=== PATIENT | male | born 1935 | race African-American/Black ===

== ENCOUNTER 2019-09-16 15:53 | Emergency (ER) | payer MEDICARE ==
[2019-09-16 16:50] LABS: ABSOLUTE EOSINOPHILS # (AUTO) 0.1 10^3/uL (0.0-0.6); ABSOLUTE LYMPHOCYTES (AUTO) 1.4 10^3/uL (0.5-4.7); ABSOLUTE MONOCYTES (AUTO) 0.6 10^3/uL (0.1-1.4); ABSOLUTE NEUT (AUTO) 5.2 10^3/uL (1.7-8.2); BASOPHILS % (AUTO) 0.6 % (0-2); EOSINOPHILS % (AUTO) 1.3 % (0-6); HEMATOCRIT 46.3 % (37.9-51.0); HEMOGLOBIN 16.1 g/dL (13.5-17.0); LYMPHOCYTES % (AUTO) 19.4 % (13-45); MEAN CORPUSCULAR HEMOGLOBIN 31.2 pg (27.0-33.4); MEAN CORPUSCULAR HGB CONC 34.8 g/dL (32.0-36.0); MEAN CORPUSCULAR VOLUME 90 fl (80-97); MONOCYTES % (AUTO) 8.4 % (3-13); PLATELET COUNT 228 10^3/uL (150-450); RED BLOOD COUNT 5.15 10^6/uL (4.35-5.55); RED CELL DISTRIBUTION WIDTH 13.1 % (11.5-14.0); SEGMENTED NEUTROPHILS % (AUTO) 70.3 % (42-78); TOTAL CELLS COUNTED % (AUTO) 100 %; WHITE BLOOD COUNT 7.3 10^3/uL (4.0-10.5)
[2019-09-16 16:51] LABS: APPEARANCE,URINE CLOUDY; BILIRUBIN,URINE NEGATIVE (NEGATIVE); COLOR,URINE YELLOW; GLUCOSE, URINE NEGATIVE (NEGATIVE); KETONES,URINE NEGATIVE (NEGATIVE); LEUKOCYTE ESTERASE,URINE NEGATIVE (NEGATIVE); NITRITE,URINE NEGATIVE (NEGATIVE); PROTEIN,URINE 30 mg/dL (NEGATIVE); URINE SPECIFIC GRAVITY 1.014
--- NOTE | 2019-09-16 16:59 | ER Document Report ---
ED General - General Chief Complaint: HYPERTENSION Stated Complaint: ABDOMINAL PAIN Mode of Arrival: Ambulatory Information source: Patient TRAVEL OUTSIDE OF THE [place] IN LAST 30 DAYS: No - HPI Onset: This afternoon Onset/Duration: Sudden Quality of pain: Sharp Severity: Severe Pain Level: 0 - had been very painful when it happeend but currently no pain Associated symptoms: Nausea, Sweating Exacerbated by: Denies Relieved by: Other - sipping on water Similar symptoms previously: No Recently seen / treated by doctor: No Notes: 84 year old male with a history of HTN, HLD, Prior Gallbladder Issues, who has a pacemaker (patient is not totally sure why he has this) here for sudden onset abdominal pain with sweating which happened while he was at his [facility] office. The patient says he started to sweat profusely and he felt nauseated with the abdominal pains. The patient had eaten Chick Filet about 45min before the symptoms started. The patient says he has never had pain like this before. The pain lasted about 45 min and then completely went away. - Related Data Allergies/Adverse Reactions: No Known Allergies Allergy (Unverified 09/16/19 16:08) Home Medications: ASA, NIFIDIPINE Past Medical History - General Information source: Patient - Social History Smoking Status: Never Smoker Frequency of alcohol use: None Drug Abuse: None Family History: Reviewed & Not Pertinent Patient has suicidal ideation: No Patient has homicidal ideation: No - Past Medical History Cardiac Medical History: Reports: Hx Hypercholesterolemia, Hx Hypertension Past Surgical History: Reports: Hx Cardiac Catheterization, Hx Pacemaker Review of Systems - Review of Systems Constitutional: No symptoms reported EENT: No symptoms reported Cardiovascular: No symptoms reported Respiratory: No symptoms reported Gastrointestinal: Abdominal pain, Nausea. denies: Diarrhea, Vomiting, Constipation Genitourinary: No symptoms reported Male Genitourinary: No symptoms reported Musculoskeletal: No symptoms reported Skin: Other - diaphoresis Hematologic/Lymphatic: No symptoms reported Neurological/Psychological: No symptoms reported -: Yes All other systems reviewed and negative Physical Exam - Vital signs Vitals: Resp Pulse Ox 18 98 09/16/19 16:22 09/16/19 16:22 - Notes Notes: GENERAL: Well-appearing, well-nourished and in no acute distress. HEAD: Atraumatic, normocephalic. EYES: Pupils equal round and reactive to light, extraocular movements intact, sclera anicteric, conjunctiva are normal. ENT: TMs normal, nares patent, oropharynx clear without exudates. Moist mucous membranes. NECK: Normal range of motion, supple without lymphadenopathy or JVD. LUNGS: Breath sounds clear to auscultation bilaterally and equal. No wheezes rales or rhonchi. HEART: Regular rate and rhythm without murmurs, rubs or gallops. ABDOMEN: Soft, nontender, normoactive bowel sounds. No guarding, no rebound. No masses appreciated. EXTREMITIES: Normal range of motion, no pitting or edema. No clubbing or cyanosis. NEUROLOGICAL: Cranial nerves II through XII grossly intact. Normal speech, normal gait. PSYCH: Normal mood, normal affect. SKIN: Warm, Dry, normal turgor, no rashes or lesions noted. Course - Re-evaluation Re-evalutation: 09/16/19 20:42 The patient had an episode of abdominal pain with sweating today that started about 45 min after eating lunch. Patient had no pain in the ER and his work up revealed he has gallstones but no sign of cholecystitis. ACS seems unlikely since he never had chest pain. Patient referred to General Surgery as an outpatient and he was DCed with a script for Bentyl PRN. - Vital Signs Vital signs: Temp Pulse Resp BP Pulse Ox 18 169/74 H 97 09/16/19 17:56 09/16/19 17:56 09/16/19 17:56 - Laboratory Result Diagrams: 09/16/19 16:25 09/16/19 16:25 Laboratory results interpreted by me: 09/16/19 09/16/19 09/16/19 16:25 16:25 16:30 Glucose 128 H AST 76 H Alkaline Phosphatase 141 H Urine Protein 30 H Urine Urobilinogen 2.0 H - Diagnostic Test Radiology reviewed: Reports reviewed - EKG Interpretation by Me EKG shows normal: Sinus rhythm, [place], Intervals, QRS Complexes Rate: Normal Rhythm: NSR [place]/QRS: Left axis deviation Additional EKG results interpreted by me: 09/16/19 20:45 inferior Q waves Discharge - Discharge Clinical Impression: Gallstones Abdominal pain Qualifiers: Abdominal location: upper abdomen, unspecified Qualified Code(s): R10.10 - Upper abdominal pain, unspecified Condition: Stable Disposition: HOME, SELF-CARE Instructions: Abdominal Pain ([facility]), Gallbladder Disease ([facility]) Additional Instructions: Follow up with a General Surgeon (two are listed) as you have gallstones and y our gallbladder may be causing your symptoms. Return to an ER for uncontrolled abdominal pain, abdominal pain with fevers, or if you are worse in anyway. Prescriptions: Dicyclomine HCl [Bentyl 20 mg Tablet] 20 mg PO Q8H PRN #20 tablet PRN Reason: Referrals: TYRELL AVENDANO MD [Primary Care Provider] - Follow up as needed MIGDALIA MONTGOMERY MD [ACTIVE STAFF] - Follow up as needed WING HUTCHINSON MD [ACTIVE STAFF] - Follow up as needed
[2019-09-16] MEDS ORDERED: LABETALOL HCL INJ 20 MG/4 ML DISP.SYRIN IV ONE (17:14)
[2019-09-16 17:22] LABS: ANION GAP 10 (5-19); BLOOD UREA NITROGEN 20 mg/dL (7-20); CALCIUM 8.9 mg/dL (8.4-10.2); CARBON DIOXIDE 26 mmol/L (22-30); CHLORIDE 103 mmol/L (98-107); GLUCOSE 128 mg/dL (75-110); POTASSIUM 4.4 mmol/L (3.6-5.0)
[2019-09-16 18:32] LABS: ALBUMIN 3.8 g/dL (3.5-5.0); ALKALINE PHOSPHATASE 141 U/L (38-126); ASPARTATE AMINO TRANSFERASE 76 U/L (17-59); BILIRUBIN,DIRECT 0.2 mg/dL (0.0-0.4); BILIRUBIN,TOTAL 1.3 mg/dL (0.2-1.3)
--- NOTE | 2019-09-16 18:35 | EKG REPORT ---
SEVERITY:- ABNORMAL ECG - ATRIAL-PACED COMPLEXES FIRST DEGREE AV BLOCK LEFT VENTRICULAR HYPERTROPHY INFERIOR INFARCT, AGE INDETERMINATE ANTERIOR Q WAVES, POSSIBLY DUE TO LVH : Confirmed by: Indu Duran MD 16-Sep-2019 18:35:15
--- NOTE | 2019-09-16 20:35 | RADIOLOGY REPORT (SQ) ---
EXAM DESCRIPTION: US ABDOMEN COMPLETED DATE/TME: 09/16/2019 17:26 CLINICAL HISTORY: 84 years, Male, rule out kidney stones and gallstones COMPARISON: EXAM DESCRIPTION: CLINICAL HISTORY: 84 years Male rule out kidney stones and gallstones COMPARISON: None. TECHNIQUE: Transabdominal grayscale imaging were performed to evaluate the abdomen FINDINGS: Pancreas is obscured by bowel gas. Heterogeneous liver measuring 14.4 cm. Lobular appearance of the right kidney without hydronephrosis. Patent hepatopedal portal vein. Exophytic cyst in the right kidney measures 3 cm. Numerous gallstones in the gallbladder. Gallbladder appears mildly contracted without wall thickening or surrounding fluid. Common duct measures 4 mm. Spleen is also suboptimally visualized. Mildly lobular left kidney measuring 9.8 cm without hydronephrosis. Midline aorta is poorly seen. Distal aspect is normal in caliber. IVC is not visualized. IMPRESSION: Mildly lobular kidneys without hydronephrosis Midline structures are obscured by gas Cholelithiasis without sonographic evidence of acute cholecystitis TECHNIQUE: LIMITATIONS: None. FINDINGS: IMPRESSION: copyright 2010 [employer]- All Rights Reserved
[2019-09-16 21:13] VITALS: BP 206/93
== END 2019-09-16 21:13 | disposition home or self-care (01) ==
LOC: ER 15:53
DX: K80.80 Other cholelithiasis without obstruction (principal); R10.10 Upper abdominal pain, unspecified; R11.0 Nausea; R61 Generalized hyperhidrosis; I10 Essential (primary) hypertension; Z79.899 Other long term (current) drug therapy; Z79.82 Long term (current) use of aspirin
CPT/HCPCS: 93005; 36415; 83690; 85025; 80076; 80048; 81001; 84484; 76700; 93010; J3490